=== PATIENT | male | born 1950 | race Caucasian/White ===

== ENCOUNTER → 2017-07-20 | Outpatient (CLI) | payer MEDICARE, MEDICAID ==
[~2017-07-20] MED LIST: ASPI81CH43 PO; ATOR20TA50 PO; FLUO20CA19 PO; GLY25T PO; KEP500T PO; METF-372 PO; METO5TAB2 PO; OMEP20CA74 PO; ZOLP1SPR PO
[2017-07-20 15:17] LABS: Folate (Folic Acid) 8.12 ng/mL (5.38-24)
== END | disposition home or self-care (01) ==
LOC: LAB 13:36
PROVIDERS: ATTEND Psychiatry & Neurology Neurology
DX: G40.309 Generalized idiopathic epilepsy and epileptic syndromes, not intractable, without status epilepticus (principal); E11.42 Type 2 diabetes mellitus with diabetic polyneuropathy; M54.12 Radiculopathy, cervical region
CPT/HCPCS: 36415; 82607; 82746; 84155; 84165; 84443

== ENCOUNTER 2019-12-10 12:37 | Inpatient (IN) | payer MEDICARE, MEDICAID ==
[2019-12-10] VITALS (19 sets, daily range): BP systolic 108–134; BP diastolic 56–77
[~2019-12-10] VITALS: Ht 170.2 cm; Wt 53.6 kg
[~2019-12-10 12:37] MED LIST changes: +DOBUTAMINE IV ONE; +[UNRECOGNIZED DRUG - OTHER] IV ONE
[2019-12-10] MEDS ORDERED: ONDANSETRON HCL 4 MG/2 ML VIAL ONE ×2 (13:14→17:35)
[2019-12-10] MEDS ORDERED: levoFLOXacin 500MG 100 ML IV ONE ×2 (13:15→14:15)
[2019-12-10] MEDS ORDERED: SODIUM CHLORIDE 0.9% 1,000 ML IV ONE (13:22)
[2019-12-10 13:33] LABS: Basophils # (auto) 0.1 10 ^3/uL (0-0.2); Basophils % (auto) 1.5 % (0.0-2.0); Eosinophils # (auto) 0.3 10 ^3/uL (0-0.8); Eosinophils % (auto) 3.7 % (0.0-7.0); Hematocrit 35.4 % (41.0-53.0); Hemoglobin 11.3 g/dL (13.5-17.5); Lymphocytes # (auto) 2.4 10 ^3/uL (0.4-5.4); Lymphocytes % (auto) 26.1 % (10.0-50.0); Mean Corpuscular Hemoglobin 28.9 pg (28.0-32.0); Mean Corpuscular Hgb Conc. 31.9 g/dL (32.0-36.0); Mean Corpuscular Volume 90.7 fL (80.0-100.0); Monocytes # (auto) 0.3 10 ^3/uL (0-1.3); Monocytes % (auto) 2.8 % (0.0-12.0); Neutrophils % (auto) 65.9 % (37.0-80.0); Nucleated Red Blood Cells % 0.1 %; Platelet Count (auto) 303 10^3/uL (140-450); Red Cell Distribution Width 13.7 % (11.8-14.3); White Blood Cell 9.2 10^3/uL (4.4-10.8)
[2019-12-10] MEDS ORDERED: NOREPINEPHRINE 8 MG/250ML KIT 250 ML IV SCH (13:45)
[2019-12-10] MEDS ORDERED: NOREPINEPHRINE 8 MG/250ML KIT 250 ML IV ONE (13:47)
[2019-12-10 13:49] LABS: Albumin 3.3 g/dL (3.4-5.0); Calcium 8.9 mg/dL (8.5-10.1); Potassium 3.9 mmol/L (3.5-5.1)
[2019-12-10 13:53] LABS: Lactic Acid w/Reflex 9.3 mmol/L (0.4-2.0)
[2019-12-10 13:55] LABS: BUN/Creatinine Ratio 17.3; Bilirubin, Total 0.6 mg/dL (0.2-1.0)
[2019-12-10] MEDS ORDERED: InsuLIN REG 1unit/0.01ml Soln (100units/ml) IV ONE (14:00)
[2019-12-10] MEDS ORDERED: SODIUM CHLORIDE 0.9% 500 ML IV ONE (14:00)
[2019-12-10] MEDS ORDERED: ONDANSETRON HCL 4 MG/2 ML VIAL IV ONE (14:15)
[2019-12-10] MEDS ORDERED: ATROPINE SULF 1 MG/10ml SYR ONE (14:16)
[2019-12-10] MEDS ORDERED: fentaNYL CITRATE 100 MCG/2 ML VL ONE (14:16)
[2019-12-10] MEDS ORDERED: MIDAZOLAM HCL 1MG/1ML-2 ML VIAL ONE (14:16)
[2019-12-10] MEDS ORDERED: ANGIOMAX 250 MG VIAL IV ONE (14:16)
[2019-12-10] MEDS ORDERED: SODIUM CHL 0.9% 50 ML ONE (14:17)
[2019-12-10] MEDS ORDERED: LIDOCAINE 2%HCL (LOCAL ANESTH.) INJ 20ML MDV ONE ×2 (14:17→14:31)
[2019-12-10] MEDS ORDERED: HEPARIN IN NS 1000Units/500mL 0 ML ONE (14:17)
[2019-12-10] MEDS ORDERED: EPINEPHrine HCL 1 MG/10 ML SYRG ONE (14:17)
[2019-12-10] MEDS ORDERED: IOHEXOL 350 MG/ML 100ML IJ ONE ×2 (14:31→15:22)
[2019-12-10 15:02] LABS: INR 1.19 (0.9-1.15); Partial Thromboplastin Time 24.8 sec (23.64-32.05)
[2019-12-10] MEDS ORDERED: EPTIFIBATIDE INJ (2MG/ML) 10ML VIAL IV ONE (15:39)
[2019-12-10] MEDS ORDERED: ADENOSINE 6 MG/2 ML INJ IV ONE (15:39)
[2019-12-10] MEDS ORDERED: IODIXANOL 320MG/ML 100ML BTL IV ONE (15:39)
[2019-12-10] MEDS ORDERED: CLOPIDOGREL 300 MG TAB ONE (16:11)
[2019-12-10] MEDS ORDERED: ASPirin 325 MG TAB ONE (16:11)
[2019-12-10] MEDS ORDERED: MORPHINE SULF INJ 2 MG/ML SYRINGE 1ML IV PRN ×2 (16:15)
[2019-12-10] MEDS ORDERED: NITROGLYCERIN 0.4 MG SL TAB SL PRN (16:15)
[2019-12-10] MEDS ORDERED: HYDROcodone-ACET 5/325MG TAB PO PRN (16:15)
[2019-12-10] MEDS ORDERED: DEXTROSE (50%) 50ML SYRG IV PRN (16:15)
[2019-12-10] MEDS ORDERED: hydrALAZINE HCL 20 MG/ML VL IV PRN (16:15)
[2019-12-10] MEDS ORDERED: ACETAMINOPHEN 500 MG TAB PO PRN ×2 (16:15)
[2019-12-10] MEDS: DOBUTamine 1000MCG/ML 250 ML IV SCH (16:15)
[2019-12-10] MEDS ORDERED: ASCORBIC ACID 1,000 MG TAB PO SCH (16:29)
[2019-12-10] MEDS ORDERED: ZINC SULFATE 220mg CAP or TAB PO SCH (16:31)
[2019-12-10] MEDS ORDERED: CHOLECALCIFEROL (VITD3) 1,000IU=25mCg TAB PO SCH (16:31)
[2019-12-10] MEDS: ACCU-CHEK COMFORT CURVE STRIP VI SCH ×2 (17:00→22:00)
[2019-12-10 17:01] LABS: CRP High Sensitivity 0.56 mg/dL (< 0.3)
[2019-12-10] MEDS ORDERED: METOPROLOL TARTRATE 1MG/1ML-5ML VIAL IV ONE (17:46)
[2019-12-10] MEDS ORDERED: METOPROLOL TARTRATE 1MG/1ML-5ML VIAL IV PRN (18:00)
[2019-12-10] MEDS: InsuLIN REG 1unit/0.01ml Soln (100units/ml) SC SCH ×2 (20:50→22:00)
[2019-12-10] MEDS: FUROSEMIDE 100 MG/10ML VIAL IV SCH (20:51)
[2019-12-10] MEDS: ATORVASTATIN 20 MG TAB PO SCH (20:52)
[2019-12-10] MEDS: DOXYCYCLINE 100 MG TAB/CAP PO SCH (20:53)
[2019-12-10] MEDS ORDERED: ALBUTEROL SULF HFA 90MCG INH 200DOSE IN SCH (22:00)
[2019-12-10] MEDS ORDERED: ATROPINE SULFATE 1 MG/1 ML VIAL ONE (23:58)
[2019-12-11] VITALS (86 sets, daily range): BP systolic 71–125; BP diastolic 37–76
[2019-12-11] MEDS: PROMETHAZINE HCL 25 MG/ML 1ML IV PRN ×4 (00:28→18:24)
[2019-12-11] MEDS ORDERED: METOPROLOL TARTRATE 1MG/1ML-5ML VIAL IV ONE (02:15)
[2019-12-11 02:29] LABS: Basophils # (auto) 0 10 ^3/uL (0-0.2); Basophils % (auto) 0.1 % (0.0-2.0); Eosinophils # (auto) 0 10 ^3/uL (0-0.8); Hematocrit 29.3 % (41.0-53.0); Hemoglobin 9.7 g/dL (13.5-17.5); Lymphocytes # (auto) 0.3 10 ^3/uL (0.4-5.4); Lymphocytes % (auto) 1.8 % (10.0-50.0); Mean Corpuscular Hemoglobin 29.4 pg (28.0-32.0); Mean Corpuscular Hgb Conc. 33.2 g/dL (32.0-36.0); Mean Corpuscular Volume 88.6 fL (80.0-100.0); Monocytes % (auto) 5.9 % (0.0-12.0); Neutrophils # (auto) 14.9 10 ^3/uL (1.6-8.6); Neutrophils % (auto) 92.2 % (37.0-80.0); Platelet Count (auto) 248 10^3/uL (140-450); Red Blood Cells 3.31 10^6/uL (4.5-5.90); Red Cell Distribution Width 13.9 % (11.8-14.3); White Blood Cell 16.2 10^3/uL (4.4-10.8)
[2019-12-11 02:50] LABS: Alanine Aminotransferase 99 U/L (16-61); Anion Gap 14 (5-15); Aspartate Aminotransferase 384 U/L (15-37); BUN/Creatinine Ratio 17.8; Blood Urea Nitrogen 38 mg/dL (7-18); Calcium 8.3 mg/dL (8.5-10.1); Carbon Dioxide 18 mmol/L (21-32); Chloride 106 mmol/L (98-107); GFR African American 40 mL/min; GFR Non-African American 33 mL/min; Glucose 346 mg/dL (74-106); Potassium 4.6 mmol/L (3.5-5.1); Sodium 138 mmol/L (136-145)
[2019-12-11 02:52] LABS: Alkaline Phosphatase 103 U/L (45-117); Bilirubin, Total 0.6 mg/dL (0.2-1.0); Total Protein 6.7 g/dL (6.4-8.2)
[2019-12-11] MEDS ORDERED: DOPamine 1600MCG/ML D5W 250 ML IV ONE (03:19)
[2019-12-11 04:51] LABS: INR 1.35 (0.9-1.15); Partial Thromboplastin Time 30.7 sec (23.64-32.05)
[2019-12-11] MEDS ORDERED: DOPamine 1600MCG/ML D5W 250 ML IV SCH (05:31)
[2019-12-11] MEDS: DOBUTamine 1000MCG/ML 250 ML IV SCH ×3 (05:38→20:58)
[2019-12-11] MEDS: FUROSEMIDE 100 MG/10ML VIAL IV SCH ×2 (06:00→18:23)
[2019-12-11] MEDS: METOPROLOL TARTRATE 1MG/1ML-5ML VIAL IV SCH ×3 (06:00→18:00)
[2019-12-11] MEDS: DOXYCYCLINE 100 MG TAB/CAP PO SCH (10:00)
[2019-12-11] MEDS ORDERED: FAMOTIDINE 20 MG TAB PO SCH (10:00)
[2019-12-11] MEDS ORDERED: OPTISON 3ml Vial for INJ IV ONE (10:15)
[2019-12-11] MEDS: ONDANSETRON HCL 4 MG/2 ML VIAL IV PRN ×2 (10:53→23:11)
[2019-12-11] MEDS: CLOPIDOGREL BISULFATE 75 MG TAB PO SCH (10:54)
[2019-12-11] MEDS ORDERED: PIPERACILLIN-TAZOB 3.375GM 100 ML IV SCH (12:00)
[2019-12-11] MEDS: PIPERACILLIN-TAZOB 2.25GM 50 ML IV SCH ×2 (12:11→18:24)
[2019-12-11] MEDS: ASPirin-EC 81 mg tab PO SCH (12:12)
[2019-12-11] MEDS: ACCU-CHEK COMFORT CURVE STRIP VI SCH ×3 (12:13→22:00)
[2019-12-11] MEDS: InsuLIN REG 1unit/0.01ml Soln (100units/ml) SC SCH ×4 (12:14→22:00)
[2019-12-11] MEDS ORDERED: PANTOPRAZOLE 40 MG/10 ML VIAL INJ IV ONE (12:30)
[2019-12-11] MEDS: SUCRALFATE 1 GM/10 ML ORAL SUSP PO SCH (18:24)
[2019-12-11] MEDS ORDERED: NOREPINEPHRINE 8 MG/250ML KIT 250 ML IV ONE (20:26)
[2019-12-11] MEDS: NOREPINEPHRINE 8 MG/250ML KIT 250 ML IV SCH (20:56)
[2019-12-11] MEDS ORDERED: PANTOPRAZOLE 40 MG/10 ML VIAL INJ IV SCH (22:00)
[2019-12-11] MEDS: PANTOPRAZOLE 40 MG/10 ML VIAL INJ IV SCH (22:29)
[2019-12-11] MEDS: ATORVASTATIN 20 MG TAB PO SCH (22:30)
[2019-12-11] MEDS: LINEZOLID 600MG/300ML 300 ML IV SCH (22:30)
[2019-12-12] VITALS (93 sets, daily range): BP systolic 67–129; BP diastolic 30–89
[2019-12-12] MEDS: METOPROLOL TARTRATE 1MG/1ML-5ML VIAL IV SCH ×4 (00:19→17:55)
[2019-12-12] MEDS: PIPERACILLIN-TAZOB 2.25GM 50 ML IV SCH ×4 (00:20→17:05)
[2019-12-12 04:13] LABS: Basophils # (auto) 0 10 ^3/uL (0-0.2); Basophils % (auto) 0.1 % (0.0-2.0); Eosinophils # (auto) 0 10 ^3/uL (0-0.8); Hematocrit 26.8 % (41.0-53.0); Hemoglobin 8.9 g/dL (13.5-17.5); Lymphocytes # (auto) 0.9 10 ^3/uL (0.4-5.4); Lymphocytes % (auto) 3.7 % (10.0-50.0); Mean Corpuscular Hemoglobin 29.4 pg (28.0-32.0); Mean Corpuscular Hgb Conc. 33.3 g/dL (32.0-36.0); Mean Corpuscular Volume 88.3 fL (80.0-100.0); Monocytes # (auto) 1.5 10 ^3/uL (0-1.3); Monocytes % (auto) 6.1 % (0.0-12.0); Neutrophils # (auto) 21.6 10 ^3/uL (1.6-8.6); Neutrophils % (auto) 90.1 % (37.0-80.0); Platelet Count (auto) 226 10^3/uL (140-450); Red Blood Cells 3.04 10^6/uL (4.5-5.90); Red Cell Distribution Width 13.8 % (11.8-14.3)
[2019-12-12 04:34] LABS: Calcium 8.5 mg/dL (8.5-10.1); Potassium 4.4 mmol/L (3.5-5.1)
[2019-12-12 04:35] LABS: BUN/Creatinine Ratio 21.6
[2019-12-12] MEDS: PROMETHAZINE HCL 25 MG/ML 1ML IV PRN ×3 (05:34→21:42)
[2019-12-12] MEDS: FUROSEMIDE 100 MG/10ML VIAL IV SCH ×2 (05:34→17:06)
[2019-12-12] MEDS: InsuLIN REG 1unit/0.01ml Soln (100units/ml) SC SCH ×4 (06:00→21:52)
[2019-12-12] MEDS: SUCRALFATE 1 GM/10 ML ORAL SUSP PO SCH ×2 (06:22→17:06)
[2019-12-12] MEDS: ACCU-CHEK COMFORT CURVE STRIP VI SCH ×4 (06:41→21:54)
[2019-12-12] MEDS: ONDANSETRON HCL 4 MG/2 ML VIAL IV PRN ×2 (08:23→17:07)
[2019-12-12] MEDS: ASPirin-EC 81 mg tab PO SCH (11:18)
[2019-12-12] MEDS: CLOPIDOGREL BISULFATE 75 MG TAB PO SCH (11:18)
[2019-12-12] MEDS: LINEZOLID 600MG/300ML 300 ML IV SCH ×2 (11:18→21:26)
[2019-12-12] MEDS: PANTOPRAZOLE 40 MG/10 ML VIAL INJ IV SCH ×2 (11:18→21:24)
[2019-12-12] MEDS: DOBUTamine 1000MCG/ML 250 ML IV SCH (17:05)
[2019-12-12] MEDS: NOREPINEPHRINE 8 MG/250ML KIT 250 ML IV SCH (17:06)
[2019-12-12] MEDS: FLUoxetine HCL 10 MG CAP PO SCH ×2 (21:08→21:24)
[2019-12-12] MEDS: ATORVASTATIN 20 MG TAB PO SCH (21:24)
[2019-12-12] MEDS: LORazepam 0.5 MG TAB PO PRN (22:42)
[2019-12-13] VITALS (80 sets, daily range): BP systolic 80–124; BP diastolic 38–78
[2019-12-13] MEDS: PIPERACILLIN-TAZOB 2.25GM 50 ML IV SCH ×5 (00:01→23:57)
[2019-12-13] MEDS: METOPROLOL TARTRATE 1MG/1ML-5ML VIAL IV SCH ×5 (00:01→23:56)
[2019-12-13] MEDS: NOREPINEPHRINE 8 MG/250ML KIT 250 ML IV SCH ×2 (01:43→17:16)
[2019-12-13] MEDS: InsuLIN REG 1unit/0.01ml Soln (100units/ml) SC SCH ×5 (05:37→22:01)
[2019-12-13] MEDS: FUROSEMIDE 100 MG/10ML VIAL IV SCH ×2 (05:44→18:05)
[2019-12-13] MEDS: SUCRALFATE 1 GM/10 ML ORAL SUSP PO SCH ×2 (06:34→17:24)
[2019-12-13] MEDS: ACCU-CHEK COMFORT CURVE STRIP VI SCH ×4 (06:51→22:02)
[2019-12-13] MEDS: ASPirin-EC 81 mg tab PO SCH (09:32)
[2019-12-13] MEDS: CLOPIDOGREL BISULFATE 75 MG TAB PO SCH (09:33)
[2019-12-13] MEDS: PANTOPRAZOLE 40 MG/10 ML VIAL INJ IV SCH ×2 (09:33→21:51)
[2019-12-13] MEDS: LINEZOLID 600MG/300ML 300 ML IV SCH ×2 (10:06→21:52)
[2019-12-13] MEDS: DOBUTamine 1000MCG/ML 250 ML IV SCH (21:46)
[2019-12-13] MEDS: ATORVASTATIN 20 MG TAB PO SCH (21:52)
[2019-12-13] MEDS: LORazepam 0.5 MG TAB PO PRN (22:07)
[2019-12-14] VITALS (74 sets, daily range): BP systolic 83–133; BP diastolic 35–73
[2019-12-14] MEDS: FUROSEMIDE 100 MG/10ML VIAL IV SCH ×2 (05:43→17:35)
[2019-12-14] MEDS: METOPROLOL TARTRATE 1MG/1ML-5ML VIAL IV SCH ×4 (05:45→23:18)
[2019-12-14] MEDS: PIPERACILLIN-TAZOB 2.25GM 50 ML IV SCH ×4 (05:47→17:35)
[2019-12-14] MEDS: InsuLIN REG 1unit/0.01ml Soln (100units/ml) SC SCH ×3 (06:03→23:35)
[2019-12-14] MEDS: SUCRALFATE 1 GM/10 ML ORAL SUSP PO SCH ×2 (06:23→16:49)
[2019-12-14] MEDS: ACCU-CHEK COMFORT CURVE STRIP VI SCH (06:24)
[2019-12-14] MEDS: PANTOPRAZOLE 40 MG/10 ML VIAL INJ IV SCH ×2 (09:38→22:00)
[2019-12-14] MEDS: ASPirin-EC 81 mg tab PO SCH (09:38)
[2019-12-14] MEDS: CLOPIDOGREL BISULFATE 75 MG TAB PO SCH (09:38)
[2019-12-14] MEDS: LINEZOLID 600MG/300ML 300 ML IV SCH ×2 (10:00→22:03)
[2019-12-14] MEDS ORDERED: TPN PER PHARMACY 0 ML IV SCH (11:30)
[2019-12-14] MEDS ORDERED: ACCU-CHEK COMFORT CURVE STRIP VI ONE (12:00)
[2019-12-14] MEDS ORDERED: InsuLIN REG 1unit/0.01ml Soln (100units/ml) SC ONE (12:00)
[2019-12-14 12:30] LABS: Basophils # (auto) 0 10 ^3/uL (0-0.2); Basophils % (auto) 0.1 % (0.0-2.0); Eosinophils # (auto) 0 10 ^3/uL (0-0.8); Eosinophils % (auto) 0.1 % (0.0-7.0); Hematocrit 28.2 % (41.0-53.0); Hemoglobin 9.3 g/dL (13.5-17.5); Lymphocytes # (auto) 0.9 10 ^3/uL (0.4-5.4); Lymphocytes % (auto) 7.2 % (10.0-50.0); Mean Corpuscular Hemoglobin 29.2 pg (28.0-32.0); Mean Corpuscular Hgb Conc. 33.1 g/dL (32.0-36.0); Mean Corpuscular Volume 88.3 fL (80.0-100.0); Monocytes # (auto) 0.6 10 ^3/uL (0-1.3); Monocytes % (auto) 5.3 % (0.0-12.0); Neutrophils # (auto) 10.5 10 ^3/uL (1.6-8.6); Neutrophils % (auto) 87.3 % (37.0-80.0); Nucleated Red Blood Cells % 0.2 %; Platelet Count (auto) 229 10^3/uL (140-450); Red Blood Cells 3.19 10^6/uL (4.5-5.90); Red Cell Distribution Width 13.5 % (11.8-14.3)
[2019-12-14 12:49] LABS: BUN/Creatinine Ratio 21.2; Calcium 8.1 mg/dL (8.5-10.1); Potassium 3.2 mmol/L (3.5-5.1)
[2019-12-14 12:52] LABS: Phosphorus 4.2 mg/dL (2.5-4.90)
[2019-12-14 12:57] LABS: Pre Albumin 14.8 mg/dL (20.0-40.0)
[2019-12-14] MEDS ORDERED: POTASSIUM CHL 20MEQ/100ML 100 ML IV ONE (14:00)
[2019-12-14] MEDS: Glucerna Carbsteady SHAKE Vanilla 8oz PO SCH (17:35)
[2019-12-14] MEDS ORDERED: DEXTROSE (50%) 50ML SYRG IV SCH (18:00)
[2019-12-14] MEDS ORDERED: ACCU-CHEK COMFORT CURVE STRIP VI SCH (18:00)
[2019-12-14] MEDS ORDERED: TPN PER PHARMACY IV NR ×7 (20:00)
[2019-12-14] MEDS: NOREPINEPHRINE 8 MG/250ML KIT 250 ML IV SCH (20:30)
[2019-12-14] MEDS: DOBUTamine 1000MCG/ML 250 ML IV SCH (21:56)
[2019-12-14] MEDS: FLUoxetine HCL 10 MG CAP PO SCH (21:59)
[2019-12-14] MEDS: MEGESTROL ACET 400MG/10ML ORAL SUSP PO SCH (22:03)
[2019-12-14] MEDS: ATORVASTATIN 20 MG TAB PO SCH (22:03)
[2019-12-14] MEDS ORDERED: INSULIN LANTUS (GLARGINE) 1 /0.01ml (100units/ml) SC ONE (23:45)
[2019-12-15] VITALS (83 sets, daily range): BP systolic 82–116; BP diastolic 39–67
[2019-12-15] MEDS: ACCU-CHEK COMFORT CURVE STRIP VI SCH ×7 (00:11→22:00)
[2019-12-15] MEDS: InsuLIN REG 1unit/0.01ml Soln (100units/ml) SC SCH ×5 (03:38→22:00)
[2019-12-15 04:24] LABS: Basophils # (auto) 0 10 ^3/uL (0-0.2); Eosinophils # (auto) 0 10 ^3/uL (0-0.8); Eosinophils % (auto) 0.2 % (0.0-7.0); Hematocrit 26.1 % (41.0-53.0); Hemoglobin 8.9 g/dL (13.5-17.5); Lymphocytes # (auto) 0.8 10 ^3/uL (0.4-5.4); Mean Corpuscular Hemoglobin 30.1 pg (28.0-32.0); Mean Corpuscular Hgb Conc. 34.1 g/dL (32.0-36.0); Mean Corpuscular Volume 88.2 fL (80.0-100.0); Monocytes # (auto) 0.7 10 ^3/uL (0-1.3); Monocytes % (auto) 7.2 % (0.0-12.0); Neutrophils # (auto) 8.3 10 ^3/uL (1.6-8.6); Neutrophils % (auto) 84.6 % (37.0-80.0); Nucleated Red Blood Cells % 0.2 %; Platelet Count (auto) 225 10^3/uL (140-450); Red Blood Cells 2.96 10^6/uL (4.5-5.90); Red Cell Distribution Width 13.3 % (11.8-14.3); White Blood Cell 9.9 10^3/uL (4.4-10.8)
[2019-12-15 04:47] LABS: Albumin 2.6 g/dL (3.4-5.0); BUN/Creatinine Ratio 21.6; Bilirubin, Total 0.9 mg/dL (0.2-1.0); Calcium 7.9 mg/dL (8.5-10.1); Magnesium 1.8 mg/dL (1.6-2.6); Phosphorus 2.7 mg/dL (2.5-4.90)
[2019-12-15 04:49] LABS: Potassium 2.6 mmol/L (3.5-5.1)
[2019-12-15] MEDS: FUROSEMIDE 100 MG/10ML VIAL IV SCH ×2 (06:12→17:59)
[2019-12-15] MEDS: PIPERACILLIN-TAZOB 2.25GM 50 ML IV SCH ×3 (06:13→17:59)
[2019-12-15] MEDS: METOPROLOL TARTRATE 1MG/1ML-5ML VIAL IV SCH ×3 (06:13→17:59)
[2019-12-15] MEDS: INSULIN LANTUS (GLARGINE) 1 /0.01ml (100units/ml) SC SCH ×2 (06:37→22:00)
[2019-12-15] MEDS: SUCRALFATE 1 GM/10 ML ORAL SUSP PO SCH ×2 (06:37→17:00)
[2019-12-15] MEDS: Glucerna Carbsteady SHAKE Vanilla 8oz PO SCH ×2 (08:00→17:59)
[2019-12-15] MEDS: POTASSIUM CHL 20MEQ/100ML 100 ML IV SCH ×2 (10:22→12:29)
[2019-12-15] MEDS: LINEZOLID 600MG/300ML 300 ML IV SCH ×2 (10:22→22:00)
[2019-12-15] MEDS: PANTOPRAZOLE 40 MG/10 ML VIAL INJ IV SCH ×2 (10:24→22:00)
[2019-12-15] MEDS: CLOPIDOGREL BISULFATE 75 MG TAB PO SCH (10:24)
[2019-12-15] MEDS: ASPirin-EC 81 mg tab PO SCH (10:24)
[2019-12-15] MEDS: MEGESTROL ACET 400MG/10ML ORAL SUSP PO SCH ×2 (10:57→22:00)
[2019-12-15] MEDS ORDERED: TPN PER PHARMACY IV NR ×10 (20:00)
[2019-12-15 20:37] LABS: Albumin 2.5 g/dL (3.4-5.0); BUN/Creatinine Ratio 22.8; Calcium 8.1 mg/dL (8.5-10.1)
[2019-12-15] MEDS: DOBUTamine 1000MCG/ML 250 ML IV SCH (20:45)
[2019-12-15 20:46] LABS: Total Protein 6.2 g/dL (6.4-8.2)
[2019-12-15] MEDS: FLUoxetine HCL 10 MG CAP PO SCH (21:00)
[2019-12-15] MEDS: ATORVASTATIN 20 MG TAB PO SCH (22:00)
[2019-12-15] MEDS ORDERED: INSULIN LANTUS (GLARGINE) 1 /0.01ml (100units/ml) SC SCH (22:00)
[2019-12-15] MEDS ORDERED: MAGNESIUM SULFATE 1GM/100ML 100 ML IV PRN (23:00)
[2019-12-15] MEDS ORDERED: POTASSIUM CHL 20MEQ/100ML 100 ML IV PRN (23:00)
[2019-12-16] VITALS (93 sets, daily range): BP systolic 80–119; BP diastolic 38–64
[2019-12-16] MEDS: POTASSIUM CHL 20MEQ/100ML 100 ML IV SCH ×2 (00:19→01:15)
[2019-12-16] MEDS: LORazepam 0.5 MG TAB PO PRN (00:29)
[2019-12-16] MEDS: ACCU-CHEK COMFORT CURVE STRIP VI SCH ×6 (00:48→20:52)
[2019-12-16] MEDS: InsuLIN REG 1unit/0.01ml Soln (100units/ml) SC SCH ×6 (02:00→20:54)
[2019-12-16 03:59] LABS: Basophils # (auto) 0 10 ^3/uL (0-0.2); Basophils % (auto) 0.1 % (0.0-2.0); Eosinophils # (auto) 0.1 10 ^3/uL (0-0.8); Eosinophils % (auto) 1.5 % (0.0-7.0); Hematocrit 26.1 % (41.0-53.0); Hemoglobin 8.9 g/dL (13.5-17.5); Lymphocytes # (auto) 0.9 10 ^3/uL (0.4-5.4); Lymphocytes % (auto) 9.3 % (10.0-50.0); Mean Corpuscular Volume 88.2 fL (80.0-100.0); Monocytes # (auto) 0.6 10 ^3/uL (0-1.3); Neutrophils # (auto) 7.6 10 ^3/uL (1.6-8.6); Neutrophils % (auto) 83.1 % (37.0-80.0); Nucleated Red Blood Cells % 0.1 %; Platelet Count (auto) 217 10^3/uL (140-450); Red Blood Cells 2.95 10^6/uL (4.5-5.90); Red Cell Distribution Width 13.2 % (11.8-14.3); White Blood Cell 9.2 10^3/uL (4.4-10.8)
[2019-12-16 04:20] LABS: Albumin 2.2 g/dL (3.4-5.0); Calcium 7.7 mg/dL (8.5-10.1); Magnesium 1.7 mg/dL (1.6-2.6); Potassium 3.3 mmol/L (3.5-5.1)
[2019-12-16 04:25] LABS: BUN/Creatinine Ratio 22.9; Bilirubin, Total 0.9 mg/dL (0.2-1.0); Phosphorus 2.2 mg/dL (2.5-4.90); Total Protein 5.6 g/dL (6.4-8.2)
[2019-12-16] MEDS: METOPROLOL TARTRATE 1MG/1ML-5ML VIAL IV SCH ×4 (06:00→18:00)
[2019-12-16] MEDS: PIPERACILLIN-TAZOB 2.25GM 50 ML IV SCH ×4 (06:00→18:08)
[2019-12-16] MEDS: FUROSEMIDE 100 MG/10ML VIAL IV SCH ×2 (06:00→18:00)
[2019-12-16] MEDS: INSULIN LANTUS (GLARGINE) 1 /0.01ml (100units/ml) SC SCH ×2 (07:00→21:31)
[2019-12-16] MEDS: SUCRALFATE 1 GM/10 ML ORAL SUSP PO SCH ×2 (07:02→17:00)
[2019-12-16] MEDS: Glucerna Carbsteady SHAKE Vanilla 8oz PO SCH ×2 (08:19→18:03)
[2019-12-16] MEDS: CLOPIDOGREL BISULFATE 75 MG TAB PO SCH (10:14)
[2019-12-16] MEDS: LINEZOLID 600MG/300ML 300 ML IV SCH ×2 (10:15→21:29)
[2019-12-16] MEDS: MEGESTROL ACET 400MG/10ML ORAL SUSP PO SCH ×2 (10:15→21:31)
[2019-12-16] MEDS: ASPirin-EC 81 mg tab PO SCH (10:15)
[2019-12-16] MEDS: PANTOPRAZOLE 40 MG/10 ML VIAL INJ IV SCH ×2 (10:16→21:30)
[2019-12-16] MEDS ORDERED: POTASSIUM PHOSP 22MEQ(15MMOLE) in NS 100 ML IV ONE (11:00)
[2019-12-16] MEDS: NOREPINEPHRINE 8 MG/250ML KIT 250 ML IV SCH (11:30)
[2019-12-16] MEDS: TPN PER PHARMACY IV NR ×11 (20:33)
[2019-12-16] MEDS: FLUoxetine HCL 10 MG CAP PO SCH (21:29)
[2019-12-16] MEDS: ATORVASTATIN 20 MG TAB PO SCH (21:30)
[2019-12-17] VITALS (81 sets, daily range): BP systolic 84–114; BP diastolic 40–70
[2019-12-17] MEDS: PIPERACILLIN-TAZOB 2.25GM 50 ML IV SCH ×4 (01:00→17:38)
[2019-12-17] MEDS: InsuLIN REG 1unit/0.01ml Soln (100units/ml) SC SCH ×6 (02:00→21:11)
[2019-12-17] MEDS: ACCU-CHEK COMFORT CURVE STRIP VI SCH ×6 (02:00→21:10)
[2019-12-17 04:20] LABS: Basophils # (auto) 0 10 ^3/uL (0-0.2); Eosinophils # (auto) 0.4 10 ^3/uL (0-0.8); Eosinophils % (auto) 3.8 % (0.0-7.0); Hematocrit 24.7 % (41.0-53.0); Hemoglobin 8.5 g/dL (13.5-17.5); Lymphocytes # (auto) 0.9 10 ^3/uL (0.4-5.4); Lymphocytes % (auto) 9.2 % (10.0-50.0); Mean Corpuscular Hemoglobin 30.3 pg (28.0-32.0); Mean Corpuscular Hgb Conc. 34.5 g/dL (32.0-36.0); Mean Corpuscular Volume 87.8 fL (80.0-100.0); Monocytes # (auto) 0.7 10 ^3/uL (0-1.3); Monocytes % (auto) 7.2 % (0.0-12.0); Neutrophils # (auto) 7.9 10 ^3/uL (1.6-8.6); Neutrophils % (auto) 79.8 % (37.0-80.0); Platelet Count (auto) 222 10^3/uL (140-450); Red Blood Cells 2.81 10^6/uL (4.5-5.90); Red Cell Distribution Width 13.4 % (11.8-14.3); White Blood Cell 9.8 10^3/uL (4.4-10.8)
[2019-12-17 04:30] LABS: Potassium 3.1 mmol/L (3.5-5.1)
[2019-12-17 04:40] LABS: Albumin 2.3 g/dL (3.4-5.0); BUN/Creatinine Ratio 21.3; Bilirubin, Total 0.8 mg/dL (0.2-1.0); Calcium 7.8 mg/dL (8.5-10.1); Magnesium 2.1 mg/dL (1.6-2.6); Phosphorus 3.7 mg/dL (2.5-4.90)
[2019-12-17] MEDS: POTASSIUM CHL 20MEQ/100ML 100 ML IV SCH ×2 (05:15→10:01)
[2019-12-17] MEDS: METOPROLOL TARTRATE 1MG/1ML-5ML VIAL IV SCH ×4 (06:00→17:38)
[2019-12-17] MEDS: FUROSEMIDE 100 MG/10ML VIAL IV SCH ×2 (06:00→17:39)
[2019-12-17] MEDS: DOBUTamine 1000MCG/ML 250 ML IV SCH (06:40)
[2019-12-17] MEDS: INSULIN LANTUS (GLARGINE) 1 /0.01ml (100units/ml) SC SCH ×2 (06:47→21:10)
[2019-12-17] MEDS: SUCRALFATE 1 GM/10 ML ORAL SUSP PO SCH ×2 (06:47→17:38)
[2019-12-17] MEDS: ONDANSETRON HCL 4 MG/2 ML VIAL IV PRN (06:48)
[2019-12-17] MEDS: Glucerna Carbsteady SHAKE Vanilla 8oz PO SCH ×2 (08:12→18:06)
[2019-12-17] MEDS: PANTOPRAZOLE 40 MG/10 ML VIAL INJ IV SCH ×2 (09:59→22:00)
[2019-12-17] MEDS: CLOPIDOGREL BISULFATE 75 MG TAB PO SCH (10:00)
[2019-12-17] MEDS: MEGESTROL ACET 400MG/10ML ORAL SUSP PO SCH ×2 (10:00→22:00)
[2019-12-17] MEDS: ASPirin-EC 81 mg tab PO SCH (10:00)
[2019-12-17] MEDS: LINEZOLID 600MG/300ML 300 ML IV SCH ×2 (10:01→22:00)
[2019-12-17] MEDS: NOREPINEPHRINE 8 MG/250ML KIT 250 ML IV SCH (17:39)
[2019-12-17] MEDS: PROMETHAZINE HCL 25 MG/ML 1ML IV PRN (19:25)
[2019-12-17] MEDS: TPN PER PHARMACY IV NR ×11 (19:49)
[2019-12-17] MEDS ORDERED: TPN PER PHARMACY IV NR ×12 (20:00)
[2019-12-17] MEDS: FLUoxetine HCL 10 MG CAP PO SCH (21:00)
[2019-12-17] MEDS: ATORVASTATIN 20 MG TAB PO SCH (22:00)
[2019-12-18] VITALS (25 sets, daily range): BP systolic 78–107; BP diastolic 16–66
[2019-12-18] MEDS: ACCU-CHEK COMFORT CURVE STRIP VI SCH ×2 (02:00→06:00)
[2019-12-18] MEDS: InsuLIN REG 1unit/0.01ml Soln (100units/ml) SC SCH ×2 (02:00→06:00)
[2019-12-18 04:19] LABS: Basophils # (auto) 0 10 ^3/uL (0-0.2); Basophils % (auto) 0.2 % (0.0-2.0); Eosinophils # (auto) 0.2 10 ^3/uL (0-0.8); Eosinophils % (auto) 2.1 % (0.0-7.0); Hematocrit 22.5 % (41.0-53.0); Hemoglobin 7.7 g/dL (13.5-17.5); Lymphocytes # (auto) 0.7 10 ^3/uL (0.4-5.4); Lymphocytes % (auto) 9.2 % (10.0-50.0); Mean Corpuscular Hemoglobin 30.7 pg (28.0-32.0); Mean Corpuscular Hgb Conc. 34.1 g/dL (32.0-36.0); Mean Corpuscular Volume 89.8 fL (80.0-100.0); Monocytes # (auto) 0.4 10 ^3/uL (0-1.3); Monocytes % (auto) 4.4 % (0.0-12.0); Neutrophils # (auto) 6.8 10 ^3/uL (1.6-8.6); Neutrophils % (auto) 84.1 % (37.0-80.0); Nucleated Red Blood Cells % 0.1 %; Platelet Count (auto) 195 10^3/uL (140-450); Red Blood Cells 2.51 10^6/uL (4.5-5.90); White Blood Cell 8.1 10^3/uL (4.4-10.8)
[2019-12-18 04:27] LABS: INR 1.42 (0.9-1.15); Partial Thromboplastin Time 32.3 sec (23.64-32.05)
[2019-12-18 04:30] LABS: Albumin 2.3 g/dL (3.4-5.0); Calcium 7.9 mg/dL (8.5-10.1); Potassium 4.3 mmol/L (3.5-5.1)
[2019-12-18 04:34] LABS: Phosphorus 4.3 mg/dL (2.5-4.90); Total Protein 5.9 g/dL (6.4-8.2)
[2019-12-18] MEDS ORDERED: DOPamine 1600MCG/ML D5W 250 ML IV ONE (05:35)
[2019-12-18] MEDS ORDERED: ATROPINE SULFATE 0.4 MG/1 ML VIAL ONE ×2 (05:36→06:44)
[2019-12-18] MEDS: METOPROLOL TARTRATE 1MG/1ML-5ML VIAL IV SCH ×2 (06:00)
[2019-12-18] MEDS: FUROSEMIDE 100 MG/10ML VIAL IV SCH (06:00)
[2019-12-18] MEDS: SUCRALFATE 1 GM/10 ML ORAL SUSP PO SCH (06:19)
[2019-12-18] MEDS: PIPERACILLIN-TAZOB 2.25GM 50 ML IV SCH ×2 (06:19)
[2019-12-18] MEDS: INSULIN LANTUS (GLARGINE) 1 /0.01ml (100units/ml) SC SCH (07:00)
[2019-12-18] MEDS ORDERED: EPINEPHrine HCL 1 MG/10 ML SYRG IV ONE (12:51)
[2019-12-18] MEDS ORDERED: CALCIUM CHLOR(10%) 100MG/ML 10ML SYRINGE IV ONE (12:51)
[2019-12-18] MEDS ORDERED: SODIUM BICARBONATE 8.4% INJ 50ML SYRINGE IV ONE (12:51)
== END 2019-12-18 14:22 | disposition expired | DRG 853 ==
LOC: EDBD 12:37 → ER 12:37 → CATH 1 14:50 → DOU IN ICU 14:51 → ICU WEST 12-11 07:26
PROVIDERS: ADMIT Specialist; ATTEND Specialist
PROC: 027034Z Dilation of Coronary Artery, One Artery with Drug-eluting Intraluminal Device, Percutaneous Approach (ICD-10-PCS; principal; 2019-12-10)
PROC: 02C03ZZ Extirpation of Matter from Coronary Artery, One Artery, Percutaneous Approach (ICD-10-PCS; 2019-12-10)
PROC: 4A023N7 Measurement of Cardiac Sampling and Pressure, Left Heart, Percutaneous Approach (ICD-10-PCS; 2019-12-10)
PROC: B2111ZZ Fluoroscopy of Multiple Coronary Arteries using Low Osmolar Contrast (ICD-10-PCS; 2019-12-10)
PROC: B41F1ZZ Fluoroscopy of Right Lower Extremity Arteries using Low Osmolar Contrast (ICD-10-PCS; 2019-12-10)
PROC: B2151ZZ Fluoroscopy of Left Heart using Low Osmolar Contrast (ICD-10-PCS; 2019-12-10)
DX: A41.1 Sepsis due to other specified staphylococcus (principal); I21.09 ST elevation (STEMI) myocardial infarction involving other coronary artery of anterior wall; N17.0 Acute kidney failure with tubular necrosis; J18.9 Pneumonia, unspecified organism; I50.21 Acute systolic (congestive) heart failure; I44.2 Atrioventricular block, complete; E87.2 Acidosis; Z68.1 Body mass index [BMI] 19.9 or less, adult; E44.0 Moderate protein-calorie malnutrition; I13.0 Hypertensive heart and chronic kidney disease with heart failure and stage 1 through stage 4 chronic kidney disease, or unspecified chronic kidney disease; I95.9 Hypotension, unspecified; E86.0 Dehydration; N18.3 Chronic kidney disease, stage 3 (moderate); F32.9 Major depressive disorder, single episode, unspecified; E11.22 Type 2 diabetes mellitus with diabetic chronic kidney disease; E78.5 Hyperlipidemia, unspecified; G40.909 Epilepsy, unspecified, not intractable, without status epilepticus; E87.6 Hypokalemia; Y95 Nosocomial condition; Z74.01 Bed confinement status; Z79.899 Other long term (current) drug therapy; Z79.84 Long term (current) use of oral hypoglycemic drugs; Z80.9 Family history of malignant neoplasm, unspecified; Z82.3 Family history of stroke; R57.0 Cardiogenic shock; Z03.818 Encounter for observation for suspected exposure to other biological agents ruled out
CPT/HCPCS: 36415; 36556; 36600; 70450; 71045; 74176; 75710; 76700; 80048; 80053; 82040; 82728; 82805; 82962; 83036; 83605; 83615; 83735; 84075; 84100; 84443; 84450; 84460; 84478; 84484; 85025; 85379; 85610; 85730; 86141; 86850; 86900; 86901; 87040; 87070; 87077; 87186; 87804; 87880; 92928; 92973; 93005; 93306; 93458; 96365; 96366; 96375; 99152; 99153; 99291; C1874; C9113; G0378; J0153; J0461; J1815; J1956; J2250; J2405; J2543; J3480; J7060; J7131; Q9956; Q9967